=== PATIENT | female | born 1965 | race Caucasian/White ===

== ENCOUNTER 2017-11-19 09:16 | Day surgery (SDC) | END 2017-11-21 14:19 | disposition home or self-care (01) ==

== ENCOUNTER → 2018-05-10 | Outpatient (CLI) | payer OTHER ==
[~2018-05-10] MED LIST: DHEA PO; DOCU100 PO; ESTROGEN CREAM; HORMONE PATCH; IBUP600 PO; IBUP800 PO; LEVSOD50 PO; LISI5 PO; LORA.5 PO; LORA1 PO; Milk Of Ma400 MG/5 M PO; NITR100CA PO; OXYACE5T PO; PANT40 PO; PRED20 PO; PROGESTERONE; PROM25 PO; Percocet 5-3251 EACH PO; SERT25 PO; SIME80CH PO; [UNRECOGNIZED DRUG - OTHER]; [UNRECOGNIZED DRUG - OTHER] SL
== END | disposition home or self-care (01) ==
LOC: LAB SHORT 12:30 → LAB 12:30
DX: B35.1 Tinea unguium (principal)
CPT/HCPCS: 87102

== ENCOUNTER → 2018-05-23 | Outpatient (CLI) | payer OTHER ==
[2018-05-23 16:38] LABS: BASOPHILS ABSOLUTE AUTO 0.05 K/mm3 (0.00-0.23); BASOPHILS PERCENT AUTO 1 % (0-2); EOSINOPHILS ABSOLUTE AUTO 0.02 K/mm3 (0.00-0.68); EOSINOPHILS PERCENT AUTO 0 % (0-6); Hematocrit 29.9 % (33.0-51.0); Hemoglobin 9.9 g/dL (11.5-16.0); IMMATURE GRAN ABSOLUTE AUTO 0.01 K/mm3 (0.00-0.10); IMMATURE GRAN PERCENT AUTO 0 % (0-1); LYMPHOCYTES ABSOLUTE AUTO 1.59 K/mm3 (0.84-5.20); LYMPHOCYTES PERCENT AUTO 29 % (21-46); MONOCYTES ABSOLUTE AUTO 0.31 K/mm3 (0.16-1.47); MONOCYTES PERCENT AUTO 6 % (4-13); Mean Corpuscular HGB 28.9 pg (26.0-34.0); Mean Corpuscular HGB Conc 33.1 g/dL (31.5-36.5); Mean Corpuscular Volume 87 fL (80-100); Mean Platelet Volume 10.3 fL (9.1-12.4); NEUTROPHILS ABSOLUTE AUTO 3.53 K/mm3 (1.96-9.15); NEUTROPHILS PERCENT AUTO 64 % (41-73); Platelet Count 295 K/mm3 (150-400); RDW Coefficient Variation 13.1 % (11.7-14.2); RDW Standard Deviation 41.6 fL (35.1-46.3); Red Blood Cell Count 3.42 M/mm3 (3.80-5.20); White Blood Cell Count 5.51 K/mm3 (4.00-11.30)
== END | disposition home or self-care (01) ==
LOC: LAB SHORT 15:59 → LAB 15:59
PROVIDERS: Nurse Practitioner Family
DX: N64.89 Other specified disorders of breast (principal)
CPT/HCPCS: 85025

== ENCOUNTER 2019-10-24 12:50 | Day surgery (SDC) | payer OTHER ==
[~2019-10-24] VITALS: Ht 162.6 cm; Wt 54.3 kg
[2019-10-24] MEDS ORDERED: CYCL10 PO (13:24)
--- NOTE | 2019-10-24 15:39 | NUR ---
10/24/19 1539 Alexa Salas PT. WANTED TO TAKE SOME TIME TO WAKE UP A LITTLE MORE. PT. FEELING DIZZY. PT. INSTRUCTED THAT IT WOULD TAKE TIME FOR THE MEDICATION TO WEAR OFF.
== END 2019-10-24 15:35 | disposition home or self-care (01) ==
LOC: ORSCSDS 12:50
PROVIDERS: Surgery
PROC: 0DJD8ZZ Inspection of Lower Intestinal Tract, Via Natural or Artificial Opening Endoscopic (ICD-10-PCS; principal; 2019-10-24 14:00)
DX: Z12.11 Encounter for screening for malignant neoplasm of colon (principal); Z86.010 Personal history of colon polyps; E03.9 Hypothyroidism, unspecified; I10 Essential (primary) hypertension; Z79.899 Other long term (current) drug therapy
CPT/HCPCS: J2704; J7120